=== PATIENT | female | born 1995 | race Caucasian/White ===

== ENCOUNTER → 2019-05-05 14:32 | Outpatient (CLI) | payer BC, SELFPAY ==
[2013-07-19 20:15] VITALS: BMI 23.1
[2019-05-11 17:29] LABS: HPV Reflexed? NOT INDICATED
== END ==
PROVIDERS: Family Provider Family Medicine; PCP Family Medicine; Referring Provider Obstetrics & Gynecology; Visit Provider Obstetrics & Gynecology
DX: Z12.4 Encounter for screening for malignant neoplasm of cervix (principal)
CPT/HCPCS: 88175; G0145

== ENCOUNTER → 2019-08-27 16:58 | Outpatient (CLI) | payer BC, SELFPAY ==
[2013-07-19 20:15] VITALS: BMI 23.1
--- NOTE | 2019-08-27 | IMM_PTH ---
PATIENT: NASRIN AMEZCUA LOC: [facility] U#:[id number] AGE/SX: 29/F ROOM: RE08/27/[address]: Dr. Valerie Field MD : 1995 BED: DIS: SPEC #: [id number] RECD: 08/31/19 14:19 STATUS: ISELA REQ #: [id number] SIMRAN: 08/27/19 00:[address]: Valerie Rodriguez DEPT: IMMUNOHISTOCHEMISTRY RECD BY: Rosario Flores ENTERED: 08/31/19 14:20 SP TYPE: IMMUNO OTHR DR: Dr. Bharat Vivas MD Tissues: A - Uterine cervix, NOS Procedures: p16 (initial) KI-67 (add) PHYSICIAN & INSTITUTION [place] [id number] SPECIMEN INFORMATION: Tissue Source: A - Cervical biopsy 6 o'clock Clinical Info: EDUARDO Specimen Number: [id number] CPT code: 00595, 24797 METHODOLOGY: Deparaffinized sections of prefer/formalin-fixed tissue or PAP/DQ stained slides are incubated with monoclonal/polyclonal antibodies/oligonucleotide probes. Localization is made via biotin free immunoperoxidase method. Appropriate controls are performed and reacted as expected. Results on target cell population are indicated in the following table: RESULTS: ANTIBODY / CLONE RESULT Block A P16 (E6H4) positive, patchy Ki-67 (30-9) positive These tests were developed and their performance characteristics determined by [facility]. They may not have been cleared or approved by the [place] Food and Drug Administration. The FDA has determined that such clearance or approval is not necessary. The above immunohistochemical/dualISH markers are ordered and reviewed by the Pathologist. INTERPRETATION: A. Cervix at 6 o'clock, biopsy: Consistent with HPV cytopathic effects. SJ:mariya 09/01/19
--- NOTE | 2019-08-27 16:35 | CER_PTH ---
PATIENT: NASRIN AMEZCUA LOC: [facility] U#:[id number] AGE/SX: 29/F ROOM: RE08/27/[address]: Dr. Valerie Field MD : 1995 BED: DIS: SPEC #: [id number] RECD: 08/27/19 17:15 STATUS: ISELA BRITNI #: [id number] SIMRAN: 08/27/19 16:[address]: Valerie Rodriguez DEPT: SURGICAL PATHOLOGY RECD BY: Dion Reagan ENTERED: 08/28/19 11:15 SP TYPE: CERV OTHR DR: Dr. Bharat Vivas MD Tissues: A - Uterine cervix, NOS B - Endocervical Procedures: Surgery Specimen Level IV HEADER OPERATION: Colposcopy PRE-OP DIAGNOSIS: LGSIL pap TISSUE SUBMITTED: A - Cervical biopsy 6 o'clock, B - ECC MICROSCOPIC DIAGNOSIS A. Cervix, 6 o'clock, biopsy: Consistent with HPV cytopathic effects. See comment. B. ECC: Fragments of benign endocervical epithelium, blood and mucous, negative for dysplasia. JOSIE:mariya 08/31/19 COMMENT A. Immunohistochemistry ([id number]) for surrogate HPV marker (p16) supports the above diagnosis. MICROSCOPIC DESCRIPTION Slides are reviewed. GROSS DESCRIPTION A - Received in fixative is one container labeled with the patient's name and designated cervical biopsy 6 o'clock. The specimen consists of a fragment of ghotra soft tissue measuring 0.2 x 0.1 x <0.1 cm. The specimen is totally submitted in one cassette. B - Received in fixative is one container labeled with the patient's name and designated ECC. The specimen consists of a scant amount of soft tissue. The specimen is totally submitted for cell block preparation. / JOSIE:mariya 08/28/19 TC:5 CPT: 16090 x2
== END ==
PROVIDERS: PCP Family Medicine; Visit Provider Obstetrics & Gynecology
DX: R87.612 Low grade squamous intraepithelial lesion on cytologic smear of cervix (LGSIL) (principal)
CPT/HCPCS: 88305; 88341; 88342